=== PATIENT | male | born 1980 | race Caucasian/White ===

== ENCOUNTER 2021-06-06 16:00 | Inpatient (IN) | payer BC ==
[2021-06-06] VITALS (9 sets, daily range): BP systolic 91–183; BP diastolic 51–112
[~2021-06-06] VITALS: Ht 172.7 cm; Wt 83.2 kg
[2021-06-06] MEDS ORDERED: potassium Cl 20 mEq SR tablet PO PRN ×2 (16:45)
[2021-06-06] MEDS ORDERED: magnesium hydroxide 30ml (MOM) UD suspension PO PRN (16:45)
[2021-06-06] MEDS ORDERED: PERFLUTREN PROTEIN-A MICROSPHR (Optison) 0.22 MG/ML 3ML VIAL IV ONE (16:45)
[2021-06-06] MEDS ORDERED: ipratropium/albuterol 3ml nebule NEB PRN (16:45)
[2021-06-06] MEDS ORDERED: ondansetron/PF 4mg/2ml inj IV PRN (16:45)
[2021-06-06] MEDS ORDERED: HYDROcodone/acetaminophen 10/325mg tab PO PRN (16:45)
[2021-06-06] MEDS ORDERED: acetaminophen 325mg tablet PO PRN ×2 (16:45)
[2021-06-06] MEDS ORDERED: furosemide 10 MG/1 ML 10ml inj IV ONE (16:50)
[2021-06-06] MEDS: niCARDipine-NS 40mg/200ml IVPB IV SCH ×2 (17:12→20:29)
[2021-06-06 18:21] LABS: APTT 31 SECONDS (22-32)
[2021-06-06 18:33] LABS: BASOPHILS # (AUTO) 0.1 X10'3 (0-0.2); EOSINOPHILS # (AUTO) 0.2 X10'3 (0-0.9); EOSINOPHILS % (AUTO) 3.8 % (0-6); HEMOGLOBIN 11.2 g/dl (14.0-17.9); LYMPHOCYTES # (AUTO) 0.6 X10'3 (1.1-4.8); MEAN CORPUSCULAR HEMOGLOBIN 29.3 PG (27.0-31.0); MEAN CORPUSCULAR VOLUME 83.9 FL (78-98); MEAN PLATELET VOLUME 7.8 FL (7.4-10.4); MONOCYTES # (AUTO) 0.4 X10'3 (0-0.9); MONOCYTES % (AUTO) 8.1 % (2-12); NEUTROPHILS # (AUTO) 4.1 X10'3 (1.8-7.7); NEUTROPHILS % (AUTO) 76.1 % (42-75); PLATELET COUNT 196 X10'3 (140-440); RED BLOOD COUNT 3.81 X10'6 (4.70-6.10); WHITE BLOOD COUNT 5.4 X10'3 (4.5-11.0)
[2021-06-06] MEDS: metolazone 2.5mg tablet PO SCH (19:14)
[2021-06-06] MEDS: carVEDilol 12.5mg tablet PO SCH (19:14)
[2021-06-06 19:15] LABS: ALANINE AMINOTRANSFERASE 51 U/L (12-78); ALBUMIN 3.2 G/DL (3.4-5.0); ALKALINE PHOSPHATASE 59 IU/L (46-116); ANION GAP 14 (8-16); ASPARTATE AMINO TRANSFERASE 26 U/L (10-37); BILIRUBIN,TOTAL 0.6 MG/DL (0.1-1.0); BLOOD UREA NITROGEN 79 MG/DL (7-18); BUN/CREATININE RATIO 7.6 (5.4-32.0); CHLORIDE 92 MMOL/L (99-107); CREATININE 10.44 MG/DL (0.60-1.10); GLUCOSE 104 MG/DL (70-104); LDL CHOLESTEROL 85 MG/DL (50-100); MAGNESIUM 2.6 MG/DL (1.5-2.4); PHOSPHORUS 5.5 MG/DL (2.3-4.5); POTASSIUM 4.1 MMOL/L (3.5-5.1); SODIUM 130 MMOL/L (135-145); TOTAL CARBON DIOXIDE 23.8 MMOL/L (24-32); TOTAL PROTEIN 6.5 G/DL (6.4-8.2); eGFR 6 ML/MIN
[2021-06-06] MEDS: docusate sod 100mg capsule PO SCH (19:15)
[2021-06-06] MEDS: heparin, porcine 5000 units/ml vial SQ SCH (19:17)
[2021-06-06] MEDS: sevelamer carbonate 800mg tablet PO SCH (19:22)
[2021-06-06] MEDS: cloNIDine 0.1 mg tablet PO SCH (19:22)
--- NOTE | 2021-06-06 22:20 | NUR ---
Notified Dr Bojorquez concerning patients blood pressure now in the 100 systolic range. Concerned that dose and rate while titrating could be decreasing to quickly. currently @ 2mg/hr. Dr. Bojorquez ordered to turn off Cardene gtt and continue to monitor blood pressure.
[2021-06-07] VITALS (20 sets, daily range): BP systolic 102–132; BP diastolic 58–83
--- NOTE | 2021-06-07 00:25 | NUR ---
Patients continues to have stable blood pressure 112/63 (77). Cardane gtt remains off. patient denies chest pain. denies SOB. denies general discomfort at this time.
[2021-06-07] MEDS: furosemide 10 MG/1 ML 10ml inj IV SCH ×2 (00:38→08:00)
[2021-06-07] MEDS: hyDRALAzine 10mg tablet PO SCH ×3 (01:34→16:00)
[2021-06-07 04:15] LABS: CLARITY,URINE CLOUDY (Clear); COLOR,URINE YELLOW (Yellow); GLUCOSE, URINE NEGATIVE (Neg); KETONES,URINE NEGATIVE (Neg); LEUKOCYTE ESTERASE ,URINE NEGATIVE (Neg); NITRITES, URINE NEGATIVE (Neg); OCCULT BLOOD,URINE MODERATE (Neg); PH,URINE 5.5 (4.8-8.0); PROTEIN,URINE 100 mg/dl (Neg); UROBILINOGEN,URINE 0.2 E.U/dL (0.2-1.0)
[2021-06-07 04:20] LABS: UA COLLECTION TYPE VOIDED
[2021-06-07 04:22] LABS: HYALINE CASTS 0-3 /LPF (NEGATIVE); SQUAMOUS EPITHELIAL CELL,UR FEW /LPF (FEW)
[2021-06-07 04:23] LABS: WBC,URINE 0-4 /HPF (0-4)
[2021-06-07 04:25] LABS: AMORPHOUS URATES 2+; BACTERIA,URINE NONE SEEN /HPF (Neg)
[2021-06-07 05:04] LABS: TOTAL PROTEIN,URINE RANDOM 356.6 MG/DL
[2021-06-07 05:59] LABS: BASOPHILS % (AUTO) 1.2 % (0-1); EOSINOPHILS # (AUTO) 0.2 X10'3 (0-0.9); HEMOGLOBIN 9.5 g/dl (14.0-17.9); LYMPHOCYTES # (AUTO) 0.7 X10'3 (1.1-4.8); LYMPHOCYTES % (AUTO) 21.2 % (21-51); MEAN CORPUSCULAR HEMOGLOBIN 29.6 PG (27.0-31.0); MEAN CORPUSCULAR HGB CONC 35.1 g/dL (33.0-36.5); MEAN CORPUSCULAR VOLUME 84.3 FL (78-98); MEAN PLATELET VOLUME 7.8 FL (7.4-10.4); MONOCYTES # (AUTO) 0.3 X10'3 (0-0.9); MONOCYTES % (AUTO) 10.3 % (2-12); NEUTROPHILS % (AUTO) 60.3 % (42-75); PLATELET COUNT 163 X10'3 (140-440); RED CELL DISTRIBUTION WIDTH 12.7 % (11.5-14.5); WHITE BLOOD COUNT 3.3 X10'3 (4.5-11.0)
[2021-06-07 06:21] LABS: ALBUMIN 2.3 G/DL (3.4-5.0); ANION GAP 9 (8-16); BLOOD UREA NITROGEN 96 MG/DL (7-18); BUN/CREATININE RATIO 8.2 (5.4-32.0); CALCIUM 7.3 MG/DL (8.5-10.1); CHLORIDE 95 MMOL/L (99-107); CREATININE 11.75 MG/DL (0.60-1.10); GLUCOSE 103 MG/DL (70-104); LACTATE DEHYDROGENASE 234 U/L (85-227); MAGNESIUM 2.6 MG/DL (1.5-2.4); PHOSPHORUS 6.5 MG/DL (2.3-4.5); POTASSIUM 4.2 MMOL/L (3.5-5.1); SODIUM 130 MMOL/L (135-145); eGFR 5 ML/MIN
[2021-06-07 06:36] LABS: RHEUM FACTOR QUAL REFLEX TITER NEGATIVE (Neg)
--- NOTE | 2021-06-07 06:37 | NUR ---
Patient in room ICU 2042. I have received report from Russ JAMES and had the opportunity to ask questions and assume patient care. Pt alert and oriented, sitting up in bed reading a book. no sob, breathing even and non labored. safety education completed. no s/sx acute distress
[2021-06-07] MEDS: cloNIDine 0.1 mg tablet PO SCH ×3 (07:33→20:52)
[2021-06-07] MEDS: carVEDilol 12.5mg tablet PO SCH ×2 (07:33→20:52)
[2021-06-07] MEDS: docusate sod 100mg capsule PO SCH ×2 (07:33→20:52)
[2021-06-07] MEDS: pantoprazole 40mg Tablet.DR PO SCH (07:33)
[2021-06-07] MEDS: heparin, porcine 5000 units/ml vial SQ SCH ×2 (07:39→20:00)
[2021-06-07] MEDS ORDERED: albumin (human) 25% 100ml IV 100 ML IV PRN (08:00)
[2021-06-07] MEDS ORDERED: heparin 1,000 units/ml 10ml inj HE ONE ×2 (08:00)
[2021-06-07] MEDS ORDERED: heparin 1,000 units/ml 10ml inj IV ONE (08:00)
[2021-06-07] MEDS: metolazone 2.5mg tablet PO SCH (08:00)
[2021-06-07] MEDS ORDERED: heparin 1,000unit/ml 10ml vial 10 ML IV ONE (08:00)
[2021-06-07] MEDS: sevelamer carbonate 800mg tablet PO SCH ×3 (08:40→18:00)
--- NOTE | 2021-06-07 08:42 | NUR ---
Dr Corona to unit discussed am scheduled lasix and zaroxalyn. per Doc, ok to hold both due to pt will get HD today, and both will further aggravate kidneys.
[2021-06-07] MEDS: K and/or MAG REPLACEMENT MC SCH (08:55)
[2021-06-07] MEDS: niCARDipine-NS 40mg/200ml IVPB IV SCH (09:00)
--- NOTE | 2021-06-07 09:33 | NUR ---
vascular paged or Renal study Addendum: 06/07/21 at 1052 by Madina García RN Per Vascular, pt will need to be NPO from midnight on for this study, thus study scheduled for tomorrow.
--- NOTE | 2021-06-07 10:52 | NUR ---
Rounds Summary: Dr. Corona/team discussed pt current state, BP, labs etc. plan is for TDC placement today, eventual transfer to PCU and dialysis. Dr. Corona plans to adjust blood pressure oral meds now that BP controlled. Dr. Corona ok with vascular study tomorrow in am, declined ultrasound of kidneys due to this study already done at [facility]. pt to continue on 1.2L fluid restriction. Addendum: 06/07/21 at 1220 by Madina García RN per Dr. Corona during rounds, do not give any additional BP meds until after dialysis.
--- NOTE | 2021-06-07 10:52 | NUR ---
IR called regarding TDC placement: plan to take pt in afternoon.
[2021-06-07] MEDS ORDERED: FURO40TA4 PO (15:21)
[2021-06-07] MEDS ORDERED: MINO2.5T19 PO (15:21)
[2021-06-07] MEDS ORDERED: DILT-91 PO (15:21)
--- NOTE | 2021-06-07 15:50 | NUR ---
Called to give report to Tele Nurse. Nurse is heading to lunch and will call back.
[2021-06-07] MEDS ORDERED: midazolam 1 mg/ML 2ml injection ONE (16:31)
[2021-06-07] MEDS ORDERED: fentaNYL/PF 50MCG/1 ML 2ML syringe ONE (16:32)
--- NOTE | 2021-06-07 16:37 | NUR ---
Problems reprioritized. Patient report given, questions answered & plan of care reviewed with Stoney RN, PCU nurse. Pt left for IR for TDC placement at 1615. no s/sx acute distress at time of departure with IR.
--- NOTE | 2021-06-07 16:40 | NUR ---
Live Dialysis nurse notified that pt went for TDC placement and will be going to [facility] 3016.
[2021-06-07] MEDS ORDERED: heparin 1,000unit/ml 10ml vial 10 ML ONE (16:45)
--- NOTE | 2021-06-07 18:02 | NUR ---
Patient in room PCU 3016. ERIKA Lua have received report from Madina and had the opportunity to ask questions and assume patient care. physical assessment completed and charted here on PCU. no changes noted.
[2021-06-08] MEDS: hyDRALAzine 10mg tablet PO SCH ×3 (01:42→16:00)
[2021-06-08 06:00] VITALS: BP 134/82
[2021-06-08 06:47] LABS: BASOPHILS % (AUTO) 0.9 % (0-1); EOSINOPHILS # (AUTO) 0.3 X10'3 (0-0.9); EOSINOPHILS % (AUTO) 7.5 % (0-6); HEMATOCRIT 27.3 % (42.0-52.0); HEMOGLOBIN 9.5 g/dl (14.0-17.9); LYMPHOCYTES # (AUTO) 0.7 X10'3 (1.1-4.8); LYMPHOCYTES % (AUTO) 17.8 % (21-51); MEAN CORPUSCULAR HEMOGLOBIN 29.1 PG (27.0-31.0); MEAN CORPUSCULAR HGB CONC 34.7 g/dL (33.0-36.5); MEAN CORPUSCULAR VOLUME 83.8 FL (78-98); MEAN PLATELET VOLUME 7.6 FL (7.4-10.4); MONOCYTES # (AUTO) 0.3 X10'3 (0-0.9); MONOCYTES % (AUTO) 8.5 % (2-12); NEUTROPHILS # (AUTO) 2.7 X10'3 (1.8-7.7); NEUTROPHILS % (AUTO) 65.3 % (42-75); PLATELET COUNT 231 X10'3 (140-440); RED BLOOD COUNT 3.25 X10'6 (4.70-6.10); RED CELL DISTRIBUTION WIDTH 12.7 % (11.5-14.5); WHITE BLOOD COUNT 4.1 X10'3 (4.5-11.0)
[2021-06-08] MEDS: pantoprazole 40mg Tablet.DR PO SCH (06:57)
[2021-06-08 07:23] LABS: ALBUMIN 2.2 G/DL (3.4-5.0); ANION GAP 14 (8-16); BLOOD UREA NITROGEN 107 MG/DL (7-18); BUN/CREATININE RATIO 8.4 (5.4-32.0); CALCIUM 7.4 MG/DL (8.5-10.1); CHLORIDE 94 MMOL/L (99-107); CREATININE 12.71 MG/DL (0.60-1.10); GLUCOSE 90 MG/DL (70-104); MAGNESIUM 2.6 MG/DL (1.5-2.4); PHOSPHORUS 7.1 MG/DL (2.3-4.5); POTASSIUM 4.5 MMOL/L (3.5-5.1); SODIUM 130 MMOL/L (135-145); TOTAL CARBON DIOXIDE 22.2 MMOL/L (24-32); eGFR 4 ML/MIN
[2021-06-08] MEDS ORDERED: albumin (human) 25% 100ml IV 100 ML IV PRN (07:40)
[2021-06-08] MEDS ORDERED: EPOETIN ALFA-EPBX 20,000 UNIT/ML 1 ML MDV IV ONE (07:40)
[2021-06-08] MEDS ORDERED: heparin 1,000unit/ml 10ml vial 10 ML IV ONE (07:40)
[2021-06-08] MEDS ORDERED: heparin 1,000 units/ml 10ml inj IV ONE (07:40)
[2021-06-08] MEDS ORDERED: heparin 1,000 units/ml 10ml inj HE ONE ×2 (07:45)
[2021-06-08] MEDS: furosemide 40mg tablet PO SCH (08:00)
[2021-06-08] MEDS: carVEDilol 12.5mg tablet PO SCH ×2 (08:00→19:21)
[2021-06-08] MEDS: cloNIDine 0.1 mg tablet PO SCH ×2 (08:00→19:21)
[2021-06-08] MEDS: sevelamer carbonate 800mg tablet PO SCH ×3 (08:00→18:57)
[2021-06-08] MEDS: docusate sod 100mg capsule PO SCH ×2 (09:19→19:21)
[2021-06-08 10:14] LABS: ANTINUCLEAR ANTIBODIES Negative (Negative); COMPLEMENT C3, SERUM 117 mg/dL (82-167); COMPLEMENT C4, SERUM 30 mg/dL (12-38); HBSAG SCREEN Negative (Negative); HEPATITIS C ANTIBODY <0.1 s/co ratio (0.0-0.9)
--- NOTE | 2021-06-08 10:21 | NUR ---
PAGED DR. CARO REGARDING PATIENT BEING BACK FROM [facility]AN. PAGER ID: [phone] MESSAGE: [id number]. TREY CHRISTIANSON. PATIENT BACK FROM [facility]. THANK YOU. JANELLE RX X [phone]
[2021-06-08 11:00] VITALS: BP 134/79
[2021-06-08 15:00] VITALS: BP_SYST 142; BP_SYST 156; BP_DIAS 81; BP_DIAS 95
[2021-06-08] MEDS ORDERED: lactulose 20gm/30ml cup PO PRN (16:45)
--- NOTE | 2021-06-08 16:49 | NUR ---
Held blood pressure meds because of dialysis
[2021-06-08 18:00] VITALS: BP 179/111
--- NOTE | 2021-06-08 18:30 | NUR ---
Received pt in bed getting dialysis, denied any discomfort. PO medication given.
[2021-06-08] MEDS: metolazone 2.5mg tablet PO SCH (18:57)
[2021-06-08] MEDS: heparin, porcine 5000 units/ml vial SQ SCH ×2 (19:20→20:00)
[2021-06-08] MEDS: K and/or MAG REPLACEMENT MC SCH (20:00)
--- NOTE | 2021-06-08 20:00 | NUR ---
Right arm swelling noted , pt denied pain or any other discomfort; will notify MD.
[2021-06-08 22:00] VITALS: BP 115/69
[2021-06-09] MEDS: hyDRALAzine 10mg tablet PO SCH ×2 (01:50→08:13)
[2021-06-09 02:00] VITALS: BP 113/90
[2021-06-09 06:00] VITALS: BP 148/92
[2021-06-09 06:57] LABS: BASOPHILS # (AUTO) 0.1 X10'3 (0-0.2); BASOPHILS % (AUTO) 1.4 % (0-1); EOSINOPHILS # (AUTO) 0.3 X10'3 (0-0.9); EOSINOPHILS % (AUTO) 6.7 % (0-6); HEMATOCRIT 29.2 % (42.0-52.0); HEMOGLOBIN 10.1 g/dl (14.0-17.9); LYMPHOCYTES # (AUTO) 0.8 X10'3 (1.1-4.8); LYMPHOCYTES % (AUTO) 21.9 % (21-51); MEAN CORPUSCULAR HEMOGLOBIN 28.9 PG (27.0-31.0); MEAN CORPUSCULAR HGB CONC 34.6 g/dL (33.0-36.5); MEAN CORPUSCULAR VOLUME 83.4 FL (78-98); MEAN PLATELET VOLUME 7.4 FL (7.4-10.4); MONOCYTES # (AUTO) 0.4 X10'3 (0-0.9); MONOCYTES % (AUTO) 10.3 % (2-12); NEUTROPHILS # (AUTO) 2.3 X10'3 (1.8-7.7); NEUTROPHILS % (AUTO) 59.7 % (42-75); PLATELET COUNT 243 X10'3 (140-440); RED CELL DISTRIBUTION WIDTH 12.8 % (11.5-14.5); WHITE BLOOD COUNT 3.9 X10'3 (4.5-11.0)
[2021-06-09 07:14] LABS: ALBUMIN 2.2 G/DL (3.4-5.0); ANION GAP 10 (8-16); BLOOD UREA NITROGEN 75 MG/DL (7-18); BUN/CREATININE RATIO 7.9 (5.4-32.0); CALCIUM 7.6 MG/DL (8.5-10.1); CHLORIDE 98 MMOL/L (99-107); CREATININE 9.53 MG/DL (0.60-1.10); GLUCOSE 87 MG/DL (70-104); MAGNESIUM 2.4 MG/DL (1.5-2.4); PHOSPHORUS 6.6 MG/DL (2.3-4.5); POTASSIUM 4.8 MMOL/L (3.5-5.1); SODIUM 134 MMOL/L (135-145); TOTAL CARBON DIOXIDE 26.4 MMOL/L (24-32); eGFR 6 ML/MIN
[2021-06-09] MEDS: pantoprazole 40mg Tablet.DR PO SCH (08:10)
[2021-06-09] MEDS: cloNIDine 0.1 mg tablet PO SCH ×2 (08:11→20:51)
[2021-06-09] MEDS: carVEDilol 12.5mg tablet PO SCH ×2 (08:11→20:51)
[2021-06-09] MEDS: furosemide 40mg tablet PO SCH (08:11)
[2021-06-09] MEDS: docusate sod 100mg capsule PO SCH ×2 (08:11→20:51)
[2021-06-09] MEDS: heparin, porcine 5000 units/ml vial SQ SCH ×2 (08:16→20:54)
[2021-06-09] MEDS: metolazone 2.5mg tablet PO SCH (09:17)
[2021-06-09] MEDS: sevelamer carbonate 800mg tablet PO SCH (09:17)
[2021-06-09] MEDS ORDERED: heparin 1,000unit/ml 10ml vial 10 ML IV ONE (09:35)
[2021-06-09] MEDS ORDERED: heparin 1,000 units/ml 10ml inj IV ONE (09:35)
[2021-06-09] MEDS ORDERED: albumin (human) 25% 100ml IV 100 ML IV PRN (09:35)
[2021-06-09] MEDS ORDERED: heparin 1,000 units/ml 10ml inj HE ONE ×2 (09:40)
[2021-06-09 11:00] VITALS: BP 120/75
[2021-06-09 15:00] VITALS: BP 137/79
[2021-06-09 17:47] LABS: HEP B CORE AB, TOT Negative (Negative)
[2021-06-09 18:00] VITALS: BP 125/95
--- NOTE | 2021-06-09 18:56 | NUR ---
Problems reprioritized. Patient report given, questions answered & plan of care reviewed with Sofy.
[2021-06-09] MEDS: K and/or MAG REPLACEMENT MC SCH (20:00)
[2021-06-09 22:00] VITALS: BP 135/66
[2021-06-10] MEDS: hyDRALAzine 10mg tablet PO SCH ×4 (00:08→16:54)
[2021-06-10 02:00] VITALS: BP 131/75
[2021-06-10 06:00] VITALS: BP 146/96
[2021-06-10 06:51] LABS: BASOPHILS # (AUTO) 0.1 X10'3 (0-0.2); BASOPHILS % (AUTO) 1.9 % (0-1); EOSINOPHILS # (AUTO) 0.3 X10'3 (0-0.9); HEMATOCRIT 28.1 % (42.0-52.0); HEMOGLOBIN 9.8 g/dl (14.0-17.9); LYMPHOCYTES % (AUTO) 24.3 % (21-51); MEAN CORPUSCULAR HEMOGLOBIN 29.1 PG (27.0-31.0); MEAN CORPUSCULAR HGB CONC 34.9 g/dL (33.0-36.5); MEAN CORPUSCULAR VOLUME 83.4 FL (78-98); MEAN PLATELET VOLUME 7.3 FL (7.4-10.4); MONOCYTES # (AUTO) 0.5 X10'3 (0-0.9); NEUTROPHILS # (AUTO) 2.2 X10'3 (1.8-7.7); NEUTROPHILS % (AUTO) 54.8 % (42-75); PLATELET COUNT 278 X10'3 (140-440); RED BLOOD COUNT 3.37 X10'6 (4.70-6.10); RED CELL DISTRIBUTION WIDTH 12.8 % (11.5-14.5); WHITE BLOOD COUNT 4.1 X10'3 (4.5-11.0)
[2021-06-10 06:56] LABS: ALBUMIN 2.4 G/DL (3.4-5.0); ANION GAP 11 (8-16); BLOOD UREA NITROGEN 57 MG/DL (7-18); CALCIUM 7.8 MG/DL (8.5-10.1); CHLORIDE 101 MMOL/L (99-107); CREATININE 8.18 MG/DL (0.60-1.10); GLUCOSE 85 MG/DL (70-104); MAGNESIUM 2.3 MG/DL (1.5-2.4); PHOSPHORUS 6.4 MG/DL (2.3-4.5); POTASSIUM 4.3 MMOL/L (3.5-5.1); SODIUM 138 MMOL/L (135-145); TOTAL CARBON DIOXIDE 26.3 MMOL/L (24-32); eGFR 7 ML/MIN
[2021-06-10] MEDS: carVEDilol 12.5mg tablet PO SCH ×2 (08:07→20:04)
[2021-06-10] MEDS: furosemide 40mg tablet PO SCH (08:07)
[2021-06-10] MEDS: docusate sod 100mg capsule PO SCH ×2 (08:08→20:05)
[2021-06-10] MEDS: pantoprazole 40mg Tablet.DR PO SCH (08:08)
[2021-06-10] MEDS: heparin, porcine 5000 units/ml vial SQ SCH (08:08)
[2021-06-10] MEDS: cloNIDine 0.1 mg tablet PO SCH ×2 (08:08→20:04)
[2021-06-10] MEDS: metolazone 2.5mg tablet PO SCH (08:20)
[2021-06-10] MEDS ORDERED: heparin 1,000 units/ml 10ml inj IV ONE (09:55)
[2021-06-10] MEDS ORDERED: heparin 1,000unit/ml 10ml vial 10 ML IV ONE (09:55)
[2021-06-10] MEDS ORDERED: albumin (human) 25% 100ml IV 100 ML IV PRN (09:55)
[2021-06-10] MEDS ORDERED: EPOETIN ALFA-EPBX 20,000 UNIT/ML 1 ML MDV IV ONE (09:55)
[2021-06-10] MEDS ORDERED: heparin 1,000 units/ml 10ml inj HE ONE ×2 (10:00)
[2021-06-10 11:00] VITALS: BP 150/98
[2021-06-10] MEDS: sevelamer carbonate 800mg tablet PO SCH ×2 (12:42→18:00)
[2021-06-10 15:00] VITALS: BP 173/114
--- NOTE | 2021-06-10 15:33 | NUR ---
Initial: Pt admit for malignant hypertension, TORRIE, and CKD V. Pt s/p TDC placement and started on dialysis this admit. Currently on a renal diet and eating well with 75-100% PO intake throughout LOS. Pt receiving routine Phos binder. LBM 06/09 per I&O, receiving routine bowel care. No nutrition intervention implemented at this time. Will continue to follow. Recommendations: 1) Continue renal diet 2) Monitor need for additional protein 3) Routine Phos binder per MD 4) Routine bowel care 5) Daily scaled weights per rx Addendum: 06/10/21 at [address] Amended: Links added.
[2021-06-10 16:54] VITALS: BP_SYST 173
--- NOTE | 2021-06-10 17:49 | NUR ---
patient having dialysis, Scheduled Hydralazine given. Addendum: 06/10/21 at 1750 by Aj Post RN Amended: Links added.
[2021-06-10] MEDS ORDERED: CARV-50 PO (18:12)
[2021-06-10] MEDS ORDERED: FOLI0.8T22 PO (18:12)
[2021-06-10] MEDS ORDERED: CLON0.1T2 PO (18:12)
[2021-06-10] MEDS ORDERED: PANT40TA54 PO (18:12)
[2021-06-10] MEDS ORDERED: hyDRALAzine tablet PO (18:12)
--- NOTE | 2021-06-10 18:30 | NUR ---
Patient in room PCU 3028. I have received report from ERIKA Rocha and had the opportunity to ask questions and assume patient care.
--- NOTE | 2021-06-10 20:36 | NUR ---
Condition improved, patient discharged home. Follow up instructions given. IV line removed, site intact, catheter intact. Vital signs stable hypertensive medications given. Patient left unit in stable condition accompanied by family members and hospital personnel.
== END 2021-06-10 20:25 | disposition home or self-care (01) | DRG 674 ==
LOC: ICU 2S 16:00 → EDBD 16:00 → PCU 3S 06-07 17:14
PROVIDERS: ADMIT Internal Medicine Critical Care Medicine; ATTEND Internal Medicine Critical Care Medicine
PROC: 0JH63XZ Insertion of Tunneled Vascular Access Device into Chest Subcutaneous Tissue and Fascia, Percutaneous Approach (ICD-10-PCS; principal; 2021-06-07)
PROC: 5A1D70Z Performance of Urinary Filtration, Intermittent, Less than 6 Hours Per Day (ICD-10-PCS; 2021-06-07)
PROC: 02H633Z Insertion of Infusion Device into Right Atrium, Percutaneous Approach (ICD-10-PCS; 2021-06-07)
PROC: B518ZZA Fluoroscopy of Superior Vena Cava, Guidance (ICD-10-PCS; 2021-06-07)
PROC: B548ZZA Ultrasonography of Superior Vena Cava, Guidance (ICD-10-PCS; 2021-06-07)
PROC: 5A1D70Z Performance of Urinary Filtration, Intermittent, Less than 6 Hours Per Day (ICD-10-PCS; 2021-06-08)
PROC: 5A1D70Z Performance of Urinary Filtration, Intermittent, Less than 6 Hours Per Day (ICD-10-PCS; 2021-06-10)
DX: I12.0 Hypertensive chronic kidney disease with stage 5 chronic kidney disease or end stage renal disease (principal); N18.5 Chronic kidney disease, stage 5; N17.9 Acute kidney failure, unspecified; Z20.822 Contact with and (suspected) exposure to COVID-19; Z99.2 Dependence on renal dialysis
CPT/HCPCS: 36415; 36558; 71045; 76937; 77001; 80048; 80053; 81001; 82570; 83615; 83721; 83735; 83880; 83970; 84100; 84156; 84300; 84439; 84443; 85025; 85610; 85651; 85730; 86038; 86160; 86430; 86592; 86704; 86706; 86803; 87081; 87340; 87635; 93005; 93306; 93975; 94760; 99152; 99153; A9270; C1750; C1769; C1894; G0257; G0378; J1644; J1940; J2150; J2250; J3010; J3490; Q4081

== ENCOUNTER 2023-05-17 17:41 | Emergency (ER) | payer BC ==
[~2023-05-17] VITALS: Ht 172.7 cm; Wt 73.9 kg
[~2023-05-17 17:41] MED LIST: CARV-50 PO; CLON0.1T2 PO; FOLI0.8T22 PO; FURO40TA4 PO; PANT40TA54 PO; hyDRALAzine tablet PO
[2023-05-17 17:52] VITALS: TEMP 98.3
[2023-05-17 21:20] LABS: BASOPHILS % (AUTO) 0.5 % (0-1); EOSINOPHILS % (AUTO) 0.6 % (0-6); HEMATOCRIT 34.6 % (42.0-52.0); HEMOGLOBIN 11.9 g/dl (14.0-17.9); LYMPHOCYTES # (AUTO) 0.6 X10'3 (1.1-4.8); LYMPHOCYTES % (AUTO) 10.9 % (21-51); MEAN CORPUSCULAR HEMOGLOBIN 30.1 PG (27.0-31.0); MEAN CORPUSCULAR HGB CONC 34.5 g/dL (33.0-36.5); MEAN CORPUSCULAR VOLUME 87.4 FL (78-98); MEAN PLATELET VOLUME 7.3 FL (7.4-10.4); MONOCYTES # (AUTO) 0.3 X10'3 (0-0.9); MONOCYTES % (AUTO) 5.1 % (2-12); NEUTROPHILS # (AUTO) 4.7 X10'3 (1.8-7.7); NEUTROPHILS % (AUTO) 82.9 % (42-75); PLATELET COUNT 288 X10'3 (140-440); RED BLOOD COUNT 3.95 X10'6 (4.70-6.10); RED CELL DISTRIBUTION WIDTH 14.5 % (11.5-14.5); WHITE BLOOD COUNT 5.7 X10'3 (4.5-11.0)
[2023-05-17 21:44] LABS: ALANINE AMINOTRANSFERASE 21 U/L (12-78); ALBUMIN 3.8 G/DL (3.4-5.0); ALBUMIN/GLOBULIN RATIO 1.2 (1.1-1.5); ALKALINE PHOSPHATASE 50 IU/L (46-116); ANION GAP 10 (8-16); ASPARTATE AMINO TRANSFERASE 14 U/L (10-37); BILIRUBIN,TOTAL 0.4 MG/DL (0.1-1.0); BLOOD UREA NITROGEN 38 MG/DL (7-18); BUN/CREATININE RATIO 15.4 (10.0-20.0); CALCIUM 8.7 MG/DL (8.5-10.1); CHLORIDE 100 MMOL/L (99-107); CREATININE 2.46 MG/DL (0.60-1.10); GLUCOSE 142 MG/DL (70-104); SODIUM 134 MMOL/L (135-145); TOTAL CARBON DIOXIDE 24.5 MMOL/L (24-32); TOTAL PROTEIN 7.1 G/DL (6.4-8.2); eCRCL 38 ML/MIN; eGFR 29 ML/MIN
[2023-05-18 01:44] VITALS: BP 132/92; PULSE 64; RESP 16; O2SAT 100
== END 2023-05-18 02:05 | disposition home or self-care (01) ==
LOC: ER 17:41
DX: I82.612 Acute embolism and thrombosis of superficial veins of left upper extremity (principal)
CPT/HCPCS: 36415; 80053; 85025; 93971; 99284

== ENCOUNTER 2023-09-23 09:32 | Emergency (ER) | payer BC ==
[~2023-09-23] VITALS: Ht 172.7 cm; Wt 76.9 kg
[2023-09-23 09:41] VITALS: TEMP 99.6
[2023-09-23 11:00] LABS: BASOPHILS % (AUTO) 0.3 % (0-1); EOSINOPHILS % (AUTO) 0.1 % (0-6); HEMATOCRIT 45.7 % (42.0-52.0); HEMOGLOBIN 15.5 g/dl (14.0-17.9); LYMPHOCYTES # (AUTO) 0.3 X10'3 (1.1-4.8); LYMPHOCYTES % (AUTO) 1.8 % (21-51); MEAN CORPUSCULAR HEMOGLOBIN 30.4 PG (27.0-31.0); MEAN CORPUSCULAR VOLUME 89.4 FL (78-98); MEAN PLATELET VOLUME 8.4 FL (7.4-10.4); NEUTROPHILS # (AUTO) 15.4 X10'3 (1.8-7.7); NEUTROPHILS % (AUTO) 91.8 % (42-75); PLATELET COUNT 355 X10'3 (140-440); RED BLOOD COUNT 5.11 X10'6 (4.70-6.10); RED CELL DISTRIBUTION WIDTH 13.2 % (11.5-14.5); WHITE BLOOD COUNT 16.8 X10'3 (4.5-11.0)
[2023-09-23 11:14] LABS: ALBUMIN 3.9 G/DL (3.4-5.0); ANION GAP 15 (8-16); BLOOD UREA NITROGEN 15 MG/DL (7-18); BUN/CREATININE RATIO 10.5 (10.0-20.0); CALCIUM 9.5 MG/DL (8.5-10.1); CHLORIDE 97 MMOL/L (99-107); CREATININE 1.43 MG/DL (0.60-1.10); GLUCOSE 113 MG/DL (70-104); PRO BRAIN NATRIURETIC PEPTIDE 459 PG/ML (0-125); SODIUM 134 MMOL/L (135-145); TOTAL CARBON DIOXIDE 21.8 MMOL/L (24-32); eCRCL 65 ML/MIN; eGFR 54 ML/MIN
[2023-09-23] MEDS ORDERED: PRE5T PO (11:28)
[2023-09-23] MEDS ORDERED: TACR0.5C3 (11:28)
[2023-09-23] MEDS ORDERED: [UNRECOGNIZED DRUG - CODE] PO (11:28)
[2023-09-23] MEDS ORDERED: MYCO500T5 PO (11:28)
[2023-09-23 11:45] LABS: BILIRUBIN,URINE NEGATIVE (Neg); CLARITY,URINE CLEAR (Clear); COLOR,URINE YELLOW (Yellow); GLUCOSE, URINE NEGATIVE (Neg); KETONES,URINE NEGATIVE (Neg); LEUKOCYTE ESTERASE ,URINE NEGATIVE (Neg); NITRITES, URINE NEGATIVE (Neg); OCCULT BLOOD,URINE TRACE-INTACT (Neg); PH,URINE 5.5 (4.8-8.0); PROTEIN,URINE TRACE mg/dl (Neg); UROBILINOGEN,URINE 0.2 E.U/dL (0.2-1.0)
[2023-09-23 11:48] LABS: UA COLLECTION TYPE CLN CATCH MIDSTREAM
[2023-09-23 12:01] LABS: SQUAMOUS EPITHELIAL CELL,UR FEW /LPF (FEW)
[2023-09-23 12:03] LABS: BACTERIA,URINE FEW /HPF (Neg); RBC,URINE 0-2 /HPF (0-2); WBC,URINE 0-4 /HPF (0-4)
[2023-09-23 13:43] VITALS: BP 126/83; PULSE 80; RESP 16; O2SAT 94
== END 2023-09-23 13:45 | disposition home or self-care (01) ==
LOC: ER 09:32
DX: D72.829 Elevated white blood cell count, unspecified (principal); Z79.899 Other long term (current) drug therapy
CPT/HCPCS: 36415; 71046; 80048; 81001; 83605; 83880; 84145; 85025; 87040; 99284